=== PATIENT | female | born 1955 | race Caucasian/White ===

== ENCOUNTER → 2017-09-30 | Outpatient (CLI) | payer OTHER ==
[2017-09-30 14:47] VITALS: BP 131/94; PULSE 70; RESP 15; TEMP 98.5; BMI 38.3
--- NOTE | 2017-09-30 15:02 | P.HPBAR ---
Bariatric H&P - History & Physicial H&P Date: 09/30/17 History & Physicial: Visit/CC: lap band fill Patient initial contact: Initial weight: 104.326 kg Initial weight in pounds: 230.00 Height: 5 ft Initial BMI: 44.9 Last weight: Current weight: 88.995 kg Current weight in pounds: 196.20 Current BMI: 38.3 [place] body weight (based on NIH guidelines): 45.359 kg Excess body weight loss: 26.0% The patient is a 62 year-old F who presents for Bariatric Assessment. Patient presents today for lap band follow-up. She's not been seen since 2014. She currently states she has minimal restriction and is requesting a fill. Past Medical History Past Medical History: Osteoarthritis (OA) History of Any Multi-Drug Resistant Organisms: None Reported Past Surgical History: Bariatric Surgery, Section, Hysterectomy, Orthopedic Surgery Additional Past Surgical History / Comment(s): bilateral carpal tunnel surgery lap band surgery 2013 c section x 2 right knee arthroscopy Smoking Status: Never smoker Surgical - Exam Vital Signs Temp Pulse Resp BP 98.5 F 70 15 131/94 09/30/17 14:44 09/30/17 14:44 09/30/17 14:44 09/30/17 14:44 - General well developed, no distress - Eyes PERRL - ENT normal pinna - Neck no masses - Abdomen Abdomen: soft, non tender Bariatric Assessment & Plan Plan: Patient's lap band was adjusted. She had 1 mL added to her band. She currently has 7 mL in the band. She was ill drink water without difficulty. She'll follow-up in one month. Bariatric Checklist Checklist: Plan: Checklist: EGD: 1. Hiatal hernia: 2. H. Pylori: HgbA1c: Vitamin D: Smoking: Never smoker Primary care physician referral: gunjan nogueira Psychiatry clearance: Cardiology clearance: Sleep study: Diet journal: VTE risk score: VTE risk level: Rehab needs at discharge:
== END | disposition home or self-care (01) ==
LOC: BARWHC3 13:40
PROVIDERS: ATTEND Surgery
DX: Z48.815 Encounter for surgical aftercare following surgery on the digestive system (principal); Z98.84 Bariatric surgery status
CPT/HCPCS: 99211

== ENCOUNTER → 2017-10-04 | Outpatient (CLI) | payer OTHER ==
[2017-10-04 10:42] VITALS: BP 138/76; PULSE 79; TEMP 98; BMI 35.7
--- NOTE | 2017-10-04 12:26 | P.HPBAR ---
Bariatric H&P - History & Physicial H&P Date: 10/04/17 History & Physicial: Visit/CC: lap band follow up Patient initial contact: Initial weight: 104.326 kg Initial weight in pounds: 230.00 Height: 5 ft Initial BMI: 44.9 Last weight: Current weight: 83.098 kg Current weight in pounds: 183.20 Current BMI: 35.7 [place] body weight (based on NIH guidelines): 45.359 kg Excess body weight loss: 35.9% The patient is a 62 year-old F who presents for Bariatric Assessment. The patient presents today for lab band follow. She has completed dysphagia. She recently had a lap band fill. Past Medical History Past Medical History: No Reported History History of Any Multi-Drug Resistant Organisms: None Reported Past Surgical History: Bariatric Surgery, Section, Orthopedic Surgery Additional Past Surgical History / Comment(s): lap band 2015 bilateral carpal tunnel surgery c section x 2 right knee arthroscopy Past Anesthesia/Blood Transfusion Reactions: No Reported Reaction Past Psychological History: No Psychological Hx Reported Smoking Status: Never smoker Past Alcohol Use History: None Reported Past Drug Use History: None Reported Surgical - Exam Vital Signs Temp Pulse BP 98.0 F 79 138/76 10/04/17 10:22 10/04/17 10:22 10/04/17 10:22 - General well developed, no distress - Eyes PERRL - ENT normal pinna - Cardiovascular Rhythm: regular - Abdomen Abdomen: soft, non tender Bariatric Assessment & Plan Plan: Dysphagia secondary to occlusion of LAP-BAND. Patient will have her LAP-BAND stress. She had 1.5 mL remove her band. She currently has 5.5 mL in the band. Patient is able to water without difficulty after her adjustment. Bariatric Checklist Checklist: Plan: Checklist: EGD: 1. Hiatal hernia: 2. H. Pylori: HgbA1c: Vitamin D: Smoking: Never smoker Primary care physician referral: gunjan nogueira Psychiatry clearance: Cardiology clearance: Sleep study: Diet journal: VTE risk score: VTE risk level: Rehab needs at discharge:
== END | disposition home or self-care (01) ==
LOC: BARWHC3 09:04
PROVIDERS: ATTEND Surgery
DX: Z46.51 Encounter for fitting and adjustment of gastric lap band (principal); K95.09 Other complications of gastric band procedure; R13.10 Dysphagia, unspecified; Z98.84 Bariatric surgery status; Z98.890 Other specified postprocedural states
CPT/HCPCS: 99212

== ENCOUNTER → 2017-10-28 | Outpatient (CLI) | payer OTHER ==
--- NOTE | 2017-10-28 16:38 | P.HPBAR ---
Bariatric H&P - History & Physicial H&P Date: 10/28/17 History & Physicial: Visit/CC: Patient initial contact: Initial weight: 104.326 kg Initial weight in pounds: Height: Initial BMI: Last weight: Current weight: Current weight in pounds: Current BMI: [place] body weight (based on NIH guidelines): Excess body weight loss: The patient is a 62 year-old F who presents for Bariatric Assessment. Patient presents today for LAP-BAND adjustment. She feels very hungry. She feels no restriction. Past Medical History Past Medical History: No Reported History History of Any Multi-Drug Resistant Organisms: None Reported Past Surgical History: Bariatric Surgery, Section, Orthopedic Surgery Additional Past Surgical History / Comment(s): lap band 2015 bilateral carpal tunnel surgery c section x 2 right knee arthroscopy Past Anesthesia/Blood Transfusion Reactions: No Reported Reaction Past Psychological History: No Psychological Hx Reported Smoking Status: Never smoker Past Alcohol Use History: None Reported Past Drug Use History: None Reported Surgical - Exam - General well developed, no distress - Eyes PERRL - Abdomen Abdomen: soft, non tender Bariatric Assessment & Plan Plan: Patient LAP-BAND was adjusted. She had 0.5 mL added to her band. She currently has 6 mL in the band. She will follow-up in one month. Bariatric Checklist Checklist: Plan: Checklist: EGD: 1. Hiatal hernia: 2. H. Pylori: HgbA1c: Vitamin D: Smoking: Never smoker Primary care physician referral: gunjan nogueira Psychiatry clearance: Cardiology clearance: Sleep study: Diet journal: VTE risk score: VTE risk level: Rehab needs at discharge:
[2017-10-28 17:14] VITALS: BP 171/103; PULSE 67; RESP 15; TEMP 98.2; BMI 38.0
== END | disposition home or self-care (01) ==
LOC: BARWHC3 15:48
PROVIDERS: ATTEND Surgery
DX: Z46.51 Encounter for fitting and adjustment of gastric lap band (principal); T73.0XXA Starvation, initial encounter; Z98.84 Bariatric surgery status; Z98.890 Other specified postprocedural states
CPT/HCPCS: 99212

== ENCOUNTER → 2017-12-02 | Outpatient (CLI) | payer OTHER ==
[2017-12-02 13:08] VITALS: BP 177/84; PULSE 75; RESP 16; TEMP 99; BMI 38.2
--- NOTE | 2017-12-02 15:26 | P.HPBAR ---
Bariatric H&P - History & Physicial H&P Date: 12/02/17 History & Physicial: Visit/CC: band adj Patient initial contact: Initial weight: 104.326 kg Initial weight in pounds: 230.00 Height: 5 ft Initial BMI: 44.9 Last weight: Current weight: 88.961 kg Current weight in pounds: 196.13 Current BMI: 38.2 [place] body weight (based on NIH guidelines): 45.359 kg Excess body weight loss: 26.0% The patient is a 62 year-old F who presents for Bariatric Assessment. The patient presents today for LAP-BAND adjustment. She currently feels hungry. She is requesting a fill. Past Medical History Past Medical History: No Reported History History of Any Multi-Drug Resistant Organisms: None Reported Past Surgical History: Bariatric Surgery, Section, Orthopedic Surgery Additional Past Surgical History / Comment(s): lap band 2014 bilateral carpal tunnel surgery c section x 2 right knee arthroscopy Past Anesthesia/Blood Transfusion Reactions: No Reported Reaction Past Psychological History: No Psychological Hx Reported Smoking Status: Never smoker Past Alcohol Use History: None Reported Past Drug Use History: None Reported Surgical - Exam Vital Signs Temp Pulse Resp BP 99 F 75 16 177/84 12/02/17 13:06 12/02/17 13:06 12/02/17 13:06 12/02/17 13:06 - General well developed, no distress - Eyes PERRL - ENT normal pinna - Neck no masses - Respiratory normal expansion - Cardiovascular Rhythm: regular - Abdomen Abdomen: soft, non tender Bariatric Assessment & Plan Plan: The patient LAP-BAND was adjusted. She had 0.5 mL added to her band. She currently has 6.5 mL in the band. She will follow-up in 4 weeks. Bariatric Checklist Checklist: Plan: Checklist: EGD: 1. Hiatal hernia: 2. H. Pylori: HgbA1c: Vitamin D: Smoking: Never smoker Primary care physician referral: gunjan nogueira Psychiatry clearance: Cardiology clearance: Sleep study: Diet journal: VTE risk score: VTE risk level: Rehab needs at discharge:
== END | disposition home or self-care (01) ==
LOC: BARWHC3 12:30
PROVIDERS: ATTEND Surgery
DX: Z48.815 Encounter for surgical aftercare following surgery on the digestive system (principal); Z98.84 Bariatric surgery status; Z98.890 Other specified postprocedural states
CPT/HCPCS: 99212

== ENCOUNTER → 2018-04-21 | Outpatient (CLI) | payer OTHER ==
[2018-04-21 13:27] VITALS: BP 159/86; PULSE 62; RESP 16; TEMP 97.8; BMI 35.5
--- NOTE | 2018-04-21 16:49 | P.HPBAR ---
Bariatric H&P - History & Physicial H&P Date: 04/21/18 History & Physicial: Visit/CC: Arsh Patient initial contact: Initial weight: 104.326 kg Initial weight in pounds: 230.00 Height: 5 ft Initial BMI: 44.9 Last weight: Current weight: 82.554 kg Current weight in pounds: 182.00 Current BMI: 35.5 [place] body weight (based on NIH guidelines): 45.359 kg Excess body weight loss: 36.9% The patient is a 62 year-old F who presents for Bariatric Assessment. Patient presents today for lap band follow. She's had some minimal GERD. She does not wish to have an adjustment. She feels she she is in a good zone. Past Medical History Past Medical History: No Reported History History of Any Multi-Drug Resistant Organisms: None Reported Past Surgical History: Bariatric Surgery, Section, Orthopedic Surgery Additional Past Surgical History / Comment(s): lap band 2015 bilateral carpal tunnel surgery c section x 2 right knee arthroscopy Past Anesthesia/Blood Transfusion Reactions: No Reported Reaction Past Psychological History: No Psychological Hx Reported Smoking Status: Never smoker Past Alcohol Use History: None Reported Past Drug Use History: None Reported Surgical - Exam Vital Signs Temp Pulse Resp BP 97.8 F 62 16 159/86 04/21/18 13:25 04/21/18 13:25 04/21/18 13:25 04/21/18 13:25 - General well developed, well nourished, no distress - Abdomen Abdomen: soft, non tender Bariatric Assessment & Plan Plan: Status post lap band procedure. Patient is doing quite well. Her GERD is minimal and will be observed. She'll follow-up in 4 weeks. Bariatric Checklist Checklist: Plan: Checklist: EGD: 1. Hiatal hernia: 2. H. Pylori: HgbA1c: Vitamin D: Smoking: Never smoker Primary care physician referral: gunjan nogueira Psychiatry clearance: Cardiology clearance: Sleep study: Diet journal: VTE risk score: VTE risk level: Rehab needs at discharge:
== END ==
LOC: BARWHC3 12:54
PROVIDERS: ATTEND Surgery
DX: Z48.815 Encounter for surgical aftercare following surgery on the digestive system (principal); K21.9 Gastro-esophageal reflux disease without esophagitis; Z98.84 Bariatric surgery status
CPT/HCPCS: 99211

== ENCOUNTER → 2018-09-08 | Outpatient (CLI) | payer OTHER ==
[2018-09-08 13:48] VITALS: BP 159/111; PULSE 80; TEMP 98.3; BMI 33.0
--- NOTE | 2018-10-24 13:35 | P.HPBAR ---
Bariatric H&P - History & Physicial H&P Date: 09/08/18 History & Physicial: Visit/CC: lap band follow up Patient initial contact: Initial weight: 104.326 kg Initial weight in pounds: 230.00 Height: 5 ft Initial BMI: 44.9 Last weight: Current weight: 76.657 kg Current weight in pounds: 169.00 Current BMI: 33.0 [place] body weight (based on NIH guidelines): 45.359 kg Excess body weight loss: 46.9% The patient is a 63 year-old F who presents for Bariatric Assessment. Patient presents today for lap band follow. She's not seen several years. He is some minimal GERD. She's had a weight gain of approximately 20 pounds. Past Medical History Past Medical History: No Reported History History of Any Multi-Drug Resistant Organisms: None Reported Past Surgical History: Bariatric Surgery, Section, Orthopedic Surgery Additional Past Surgical History / Comment(s): lap band 2015 bilateral carpal tunnel surgery c section x 2 right knee arthroscopy Past Anesthesia/Blood Transfusion Reactions: No Reported Reaction Past Psychological History: No Psychological Hx Reported Smoking Status: Never smoker Past Alcohol Use History: None Reported Past Drug Use History: None Reported Surgical - Exam Vital Signs Temp Pulse BP 98.3 F 80 159/111 09/08/18 13:46 09/08/18 13:46 09/08/18 13:46 - General well developed, well nourished - Abdomen Abdomen: soft, non tender Bariatric Assessment & Plan Plan: History of LAP-BAND surgery. Patient is minimal GERD. She will follow-up in 4 weeks. She'll be observed. If she still has GERD at her next visit she'll have her LAP-BAND decreased in volume. Bariatric Checklist Checklist: Plan: Checklist: EGD: 1. Hiatal hernia: 2. H. Pylori: HgbA1c: Vitamin D: Smoking: Never smoker Primary care physician referral: gunjan nogueira Psychiatry clearance: Cardiology clearance: Sleep study: Diet journal: VTE risk score: VTE risk level: Rehab needs at discharge:
== END | disposition home or self-care (01) ==
LOC: BARWHC3 13:10
PROVIDERS: ATTEND Surgery
DX: Z48.815 Encounter for surgical aftercare following surgery on the digestive system (principal); K21.9 Gastro-esophageal reflux disease without esophagitis; Z98.84 Bariatric surgery status
CPT/HCPCS: 99211

== ENCOUNTER → 2018-09-24 | Outpatient (CLI) | payer OTHER | END | disposition home or self-care (01) | LOC: LABPAT 12:56 | PROVIDERS: ATTEND Orthopaedic Surgery | DX: Z01.812 Encounter for preprocedural laboratory examination (principal) | CPT/HCPCS: 87070 ==

== ENCOUNTER 2018-10-28 06:22 | Inpatient (IN) | payer OTHER ==
--- NOTE | 2018-10-27 09:43 | HP ---
HISTORY AND PHYSICAL CHIEF COMPLAINT: Right knee pain. HISTORY OF PRESENT ILLNESS: The patient is a 63-year-old female who presents with progressive right knee pain secondary to osteoarthrosis worsening over the past several years. She is having a difficult time with prolonged activity and sitting. She has tried previous injections and medications with only partial temporary relief. She had a previous right knee arthroscopy in 2015. PAST MEDICAL HISTORY: Significant for hyperlipidemia, arthritis, and depression. PAST SURGICAL HISTORY: Significant for gastric bypass, hysterectomy, right knee arthroscopy, right carpal tunnel release, and section. CURRENT ALLERGIES: Mobic. She denies drug allergies. FAMILY HISTORY: Significant for diabetes and Alzheimer's. SOCIAL HISTORY: Negative for current tobacco or alcohol use. 16 POINT REVIEW OF SYSTEMS: Otherwise reviewed and is noncontributory. PHYSICAL EXAMINATION: Patient is approximately 5 feet tall, 160 pounds of endomorphic habitus. HEENT exam is nonfocal. Neck is supple. She has painless passive motion of the right hip. Straight leg raise is negative. Active motion right knee -8 to 65 degrees of flexion. She is tender about the medial joint line. She has moderate effusion. Collaterals are stable, Linda is negative, Deann's is equivocal. She has genu varum alignment. Her distal neurovascular appears intact in the right lower extremity. Previous weightbearing, notch, lateral, and Merchant views of the right knee obtained in the office show severe medial and patellofemoral compartment narrowing. IMPRESSION: Right knee severe medial compartment osteoarthrosis. RECOMMENDATIONS: I talked to the patient at length regarding her condition along with treatment options. At this point, she is quite symptomatic and limited because of pain related to her osteoarthrosis despite conservative measures. After a thorough discussion, she opts to proceed with surgery. We will plan to proceed with right total knee arthroplasty. We will institute DVT prophylaxis postoperatively. MMODL / IJN: [id number] /
[~2018-10-28 06:22] MED LIST: ACETAMINOPHEN TAB 500 MG TAB PO ONE; DEXAMETHASONE SOD PHOSPHATE 10 MG/ML 1 ML VIAL IV ONE; HYDROmorphone 0.5 MG/0.5 ML SYRINGE IVP PRN; MELOXICAM 7.5 MG TAB PO ONE; MIDAZOLAM 2 MG/2 ML VIAL IV PRN; ONDANSETRON 4 MG/2 ML VIAL IVP ONE; TRANEXAMIC ACID 1,000 MG in SODIUM CHLORIDE 0.9% 100 ML IVPB ONE
[2018-10-28] MEDS ORDERED: MIDAZOLAM (PF) 2 MG/2 ML VIAL IV ONE (07:24)
[2018-10-28] MEDS ORDERED: fentaNYL (PF) 50 MCG/ML 2 ML AMP IV ONE (07:24)
[2018-10-28] MEDS ORDERED: ROPIVACAINE 246.25 MG, EPINEPHrine 0.5 MG, KETOROLAC 30 MG, cloNIDine HCL/PF 80 MCG, WA... MISCELLANE ONE ×5 (07:35)
[2018-10-28] MEDS: LACTATED RINGERS 1,000 ML IV SCH (07:36)
[2018-10-28] MEDS ORDERED: ROPIVACAINE 1,100 MG, SODIUM CHLORIDE 0.9% 500 ML 330 ML MISCELLANE PRN ×2 (07:41)
--- NOTE | 2018-10-28 07:43 | P.ANPRN ---
Procedure Note - Anesthesia - Nerve Block Performed Right Adductor Canal Infusion Time Out Performed: Yes (0723) Date of Procedure: 10/28/18 Procedure Start Time: Procedure Stop Time: Indication: Acute Post-Operative Pain, Dx/Pain Location (Right Knee Pain), Requested by physician (Regulo) Sedation Type: Sedate with meaningful contact maintained Preparation: Sterile Prep Position: Supine Catheter: Indwelling Needle Types: Pajunk Needle Gauge: 21 Technique: Ultrasound Injectate: 0.5% Ropivacaine (see comment for volume) (20ml) Blood Aspirated: No Pain Paresthesia on Injection Noted: No Resistance on Injection: Normal Events: Uneventful and Well Tolerated
[2018-10-28] MEDS ORDERED: diphenhydrAMINE 50 MG/ML 1 ML VIAL ONE (07:50)
[2018-10-28] MEDS ORDERED: SODIUM CHLORIDE 0.9% 100 ML BAG ONE (07:50)
[2018-10-28] MEDS ORDERED: TRANEXAMIC ACID 1,000 MG/10 ML VIAL ONE (07:50)
[2018-10-28] MEDS ORDERED: MIDAZOLAM 2 MG/2 ML VIAL ONE (07:50)
[2018-10-28] MEDS ORDERED: fentaNYL (PF) 50 MCG/ML 2 ML AMP ONE (07:50)
[2018-10-28] MEDS ORDERED: ceFAZolin 3,000 MG in SODIUM CHLORIDE 0.9% IRRIGATIO 3,000 ML IRRIGATION ONE (08:28)
[2018-10-28] MEDS ORDERED: HYDROmorphone 0.5 MG/0.5 ML SYRINGE IVP PRN (09:42)
[2018-10-28] MEDS ORDERED: NALOXONE 0.4 MG/ML 1 ML VIAL IV PRN (09:42)
[2018-10-28] MEDS ORDERED: MAGNESIUM HYDROXIDE 2,400 MG/10 ML CUP PO PRN (09:42)
[2018-10-28] MEDS ORDERED: HYDROcodone/APAP 5-325MG 1 EACH TAB PO PRN (09:42)
[2018-10-28] MEDS ORDERED: ACETAMINOPHEN TAB 325 MG TAB PO PRN (09:42)
[2018-10-28] MEDS ORDERED: traMADol 50 MG TAB PO PRN (09:42)
[2018-10-28] MEDS ORDERED: ONDANSETRON 4 MG/2 ML VIAL IVP PRN (09:42)
--- NOTE | 2018-10-28 10:12 | P.OP ---
Date of Procedure: 10/28/18 Preoperative Diagnosis: Right knee severe tricompartmental osteoarthrosis Postoperative Diagnosis: Same Procedure(s) Performed: Right total knee arthroplastycementedcruciate retaining Implants: [employer] 2 size 4 cemented femoral component, size 3 cemented tibial component, 9 mm articular surface, 29 mm cemented patellar component. This is a cruciate retaining implant. Anesthesia: regional, local, spinal Surgeon: Romeo Rajput Deputy Sheriff Bailiff #1: Skinny Schaeffer Estimated Blood Loss (ml): 50 Pathology: other (Bone fragments) Condition: stable Disposition: PACU Indications for Procedure: The patient is a 63-year-old female who presents with progressive right knee pain secondary osteoarthrosis despite conservative measures. A discussion of the risks and benefits of operative intervention versus continued conservative measures was made with the patient. She opted to proceed with surgery. Operative risks to include infection, neurovascular injury, development of blood clots, possible fracture, possible component loosening, possible component failure and need for subsequent procedures was discussed. Informed consent was obtained. Operative Findings: As below Description of Procedure: The patient was brought to the operating room, and after induction of spinal anesthesia the right lower extremity was prepped and draped in a normal fashion. The tourniquet was inflated to 270 mmHg. A longitudinal incision extending 3 finger breaths above the superior pole of the patella extending to the medial aspect the tibial tubercle was then made. The skin and subcutaneous tissues were divided sharply. Electrocautery was used for hemostasis. A medial parapatellar arthrotomy was then performed. The medial soft tissues to include the superficial and deep portions of the medial collateral ligament as well as the medial hamstring tendons were elevated subperiosteally. The proximal medial tibia osteophytes were carefully removed. The patella was everted. The knee was flexed. A portion of the retropatellar fat pad was excised sharply. The anterior cruciate ligament was sacrificed. A starting hole was made in the distal femur 1 cm anterior to the posterior cruciate origin. An intramedullary femoral guide was gently inserted planning on 5 valgus distal cut with 9 mm distal resection. The cutting block was pinned in place. The distal cut was then made. The posterior referencing sizing guide was utilized. 3 of external rotation was built into the system and verified off the trans- epicondylar axis and the posterior condyles. I felt size for was most appropriate. The cutting block was pinned in place. The anterior, posterior, and chamfer cuts were then made. The bone fragments were removed. The trial size 4 femoral component was then placed and was fully seated. There was good anterior to posterior and medial to lateral fit. The distal peg holes were then drilled. The trial component was then removed. Attention was then paid towards preparing the proximal tibia. An extra medullary guide was utilized in line with the tibial shaft and second metatarsal distally. A 3 posterior slope was planned. I planned on 2 mm resection from the medial compartment. The cutting block was pinned in place. The proximal tibial cut was then made. The bone was removed in one fragment. The remnants of the medial and lateral menisci were excised the capsule junction with electrocautery. The tibia sized most appropriately at size 3. The posterior osteophytes off the distal femur were carefully removed with a curved osteotome. The trial tibial and femoral components were placed along with a 9 millimeters articular surface. I was able to obtain full flexion and extension with good stability with varus and valgus stress. After several flexion and extension cycles, the tibial rotation was marked with electrocautery in line with the medial one third of the tibial tubercle. Attention was then paid towards preparing the patella. A patella reamer was utilized taking this down to 14 mm of bone stock. A good flush cut was made. The patella sized most appropriately at 29 millimeters. The peg hole s were then drilled. The trial component was placed. The knee was taken through a range of motion. I had good patellofemoral tracking with no hands technique. The trial components were then removed. The tibia was prepared in the appropriate rotation with appropriate drill and keel punch. The flexion and extension gaps were checked and felt to be symmetric. The posterior soft tissues were injected with ropivacaine. The bony surfaces were prepared with pulsatile lavage and dried. The deep tibial component was then cemented in place and was fully seated. Excess cement was removed. The femoral component was cemented in place and was fully seated. Again excess cement was removed. The trial 9 millimeters surface was then inserted in the knee was put in full extension. The patella component was cemented in place. After the cement had sufficiently hardened, the knee was again taken through a range of motion. Again there was good stability in flexion and extension with varus and valgus stress. The trial articular surface was then removed. The final articular surface was placed and was impacted. Care was taken to avoid any soft tissue interposition. Pulsatile lavage was again utilized. The tourniquet was deflated with approximately 65 minutes total tourniquet time. There was minimal drainage therefore a deep drain was not placed. The medial parapatellar arthrotomy was then closed with #2 Ethibond suture. The subcutaneous tissues were reapproximated interrupted 2-0 Vicryl sutures. The skin was reapproximated with 3-0 subarticular strata fix suture. Skin tape and adhesive was applied. A sterile dressing was applied. The patient was then awoken from sedation and transferred to recovery room in good condition. Blood loss was estimated at 50 milliliters. No complications were incurred. Sponge and needle counts were correct at the end the case. Tiago CAMACHO assisted during the major components this case to include exposure, bone resection, and implantation.
--- NOTE | 2018-10-28 10:26 | XR ---
Right knee HISTORY: Status post right knee arthroplasty 2 views of the right knee Patient is status post right knee arthroplasty. There is lucency in the soft tissues compatible with postop state. There is anatomic alignment. IMPRESSION: Orthopedic follow-up.
[2018-10-28 14:27] VITALS: BMI 31.5
[2018-10-28] MEDS: SENNOSIDES-DOCUSATE SODIUM 1 EACH TAB PO SCH (19:59)
[2018-10-28] MEDS: HYDROcodone/APAP 5-325MG 1 EACH TAB PO PRN (22:22)
--- NOTE | 2018-10-28 23:03 | CONS ---
CONSULTATION REASON FOR CONSULTATION: Advice regarding depression and other multiple medical issues requested by Dr. Rajput. HISTORY OF PRESENT ILLNESS: This 63-year-old woman with a past medical history of bariatric surgery, section, orthopedic surgery, lap band, [facility] [place] underwent right total knee arthroplasty. The patient is being closely monitored. There is no history of chest pain. No history of palpitations, headache, loss of consciousness, seizures. No history of diarrhea, fever, rigors, chills at this time. PAST MEDICAL HISTORY: Bariatric surgery, section, DJD, lap band surgery. MEDICATIONS ARE: Home medications: 1. Omeprazole 20 mg daily. 2. Lexapro 10 mg daily. 3. Vitamin D3 1000 daily. 4. Tylenol Arthritis 650 p.r.n. 5. Mobic 7.5 p.r.n. ALLERGIES: None. FAMILY HISTORY: No history of any heart disease or strokes in the family. SOCIAL HISTORY: No history of smoking. No history of alcohol intake. REVIEW OF SYSTEMS: ENT: No diminished vision. No diminished hearing. CARDIOVASCULAR: No angina or palpitations. RESPIRATORY: Respiratory is no cough or hemoptysis. GI no nausea or vomiting. no dysuria. No hematuria. CENTRAL NERVOUS SYSTEM: No numbness or weakness. ALLERGY/IMMUNOLOGY: No asthma or hayfever. MUSCULOSKELETAL as mentioned earlier. HEMATOLOGY/ONCOLOGY: No history or anemia. ENDOCRINE: No history of diabetes or hypothyroidism. CONSTITUTIONAL: As mentioned earlier. DERMATOLOGY: Negative. RHEUMATOLOGY: Negative. PSYCHIATRY as mentioned earlier. PHYSICAL EXAMINATION: Alert and oriented x3. Pulse is 54, blood pressure 125/77, respiration 18, temperature 98.1, pulse ox 94% on room air. HEENT: Conjunctivae normal. Oral mucosa moist. NECK is no jugular venous distention. No carotid bruit. No lymph node enlargement. CARDIOVASCULAR SYSTEM: S1, S2 muffled. No S3, no S4. RESPIRATORY: Breath sounds diminished in the bases. No rhonchi. No crackles. ABDOMEN: Soft, nontender. No mass palpable. LEGS: Status post right knee arthroplasty. NERVOUS SYSTEM: Higher functions as mentioned earlier. Moves all 4 limbs. No focal motor or sensory deficits. LYMPHATICS: No lymph nodes palpable in the neck, axillae or groin. SKIN: No ulcer, rash or bleeding. JOINTS: No active deforming arthropathy. LABS: Potassium 4.1. ASSESSMENT: 1. Status post right total knee arthroplasty. 2. History of bariatric surgery, lap band surgery. 3. History of carpal tunnel syndrome. 4. History of degenerative joint disease. 5. Bradycardia, possibly sinus. RECOMMENDATIONS AND DISCUSSION: In this 63-year-old woman who presented after surgery at this time I recommend to continue current medications, management and symptomatic treatment. Resume the home medications. I would recommend DVT prophylaxis. Incentive spirometry. Also recommend orthopedic surgery. Recommend close followup with the [facility] and Dr. Egan in the outpatient setting. Further recommendations to follow. Thank you Dr. Rajput for letting us participate in the care of this patient. MMODL / IJN: [id number] /
[2018-10-29] MEDS: LACTATED RINGERS 1,000 ML IV SCH (03:34)
[2018-10-29] MEDS: HYDROcodone/APAP 5-325MG 1 EACH TAB PO PRN ×4 (05:53→22:36)
--- NOTE | 2018-10-29 06:12 | P.PN ---
Progress Note - Text Progress Note Date: 10/29/18 63-year-old female status post right total knee arthroplasty postop day #1. Adductor canal catheter was placed. VAS 1-2 out of 10 in severity. Patient doing well no issues, no pruritus, no motor sensory deficits. Patient ambulating well with no issue, plan to continue with current settings and hopeful discharge home.
[2018-10-29] MEDS: CHOLECALCIFEROL 1,000 UNIT TAB PO SCH (08:14)
[2018-10-29] MEDS: RIVAROXABAN 10 MG TAB PO SCH (08:15)
[2018-10-29] MEDS: ESCITALOPRAM 10 MG TAB PO SCH (08:15)
[2018-10-29] MEDS: PANTOPRAZOLE 40 MG TABLET PO SCH (08:15)
[2018-10-29 08:33] LABS: Basophils % (A) 0 %; Eosinophils % (A) 1 %; HCT 34.8 % (34.0-46.0); HGB 11.7 gm/dL (11.4-16.0); Lymphocytes % (A) 21 %; MCH 33.7 pg (25.0-35.0); MCHC 33.6 g/dL (31.0-37.0); MCV 100.2 fL (80.0-100.0); Mean Platelet Volume 7.1; Monocytes # (A) 0.4 k/uL (0-1.0); Monocytes % (A) 8 %; Neutrophils # (A) 3.1 k/uL (1.3-7.7); Neutrophils % (A) 69 %; Platelet Count 206 k/uL (150-450); RBC 3.47 m/uL (3.80-5.40); RDW 13.6 % (11.5-15.5); WBC 4.6 k/uL (3.8-10.6)
--- NOTE | 2018-10-29 11:38 | P.PN ---
Subjective Progress Note Date: 10/29/18 Principal diagnosis: Status post right total knee arthroplasty Patient evaluated at bedside, she is resting comfortably. She did ambulate initially with therapy today, she did become very lightheaded and needed assistance returning to her room. Her blood pressure was noted to be severely declined. She is feeling better at this time. She denies any chest pain or shortness of breath. Objective - Vital Signs Vital signs: Vital Signs Temp 98.4 F 10/29/18 07:00 Pulse 58 L 10/29/18 10:18 Resp 16 10/29/18 08:00 BP 99/65 10/29/18 10:18 Pulse Ox 97 10/29/18 10:12 Intake & Output 10/28/18 10/29/18 10/29/18 18:59 06:59 18:59 Intake Total 951 150 Output Total 250 Balance 701 150 Intake: IV 851 Intake, IV Titration 150 Amount Lactated Ringers 1,000 ml 150 @ 50 mls/hr IV .Q20H TEJAL Rx#:[id number] Oral 100 Output: Urine 200 Estimated Blood Loss 50 Other: Voiding Method Toilet Toilet # Voids 1 - Exam Right lower extremity: Incision is clean, dry, and intact. The exofin fusion tape is in good condition. There is minimal soft tissue swelling and ecchymosis surrounding the medial and lateral aspects of the incision. Calf is soft, no tenderness with palpation. Plantar flexion, dorsiflexion, EHL, FHL are intact. Sensory exam to light touch throughout the extremity is intact, dorsal pedis pulses 2+. - Labs CBC & Chem 7: 10/29/18 08:03 10/28/18 07:14 Labs: Abnormal Lab Results - Last 24 Hours (Table) 10/29/18 Range/Units 08:03 RBC 3.47 L (3.80-5.40) m/uL MCV 100.2 H (80.0-100.0) fL Assessment and Plan Plan: Assessment: Postoperative day #1 status post right total knee arthroplasty Plan: Pain control, continue with oral medication GI and DVT prophylaxis, continue current medication Continue her physical therapy Encourage incentive spirometer Medical recommendation Considering discharged home of patient's nausea and blood pressure continue to improve, will reassess later this afternoon. Patient may require an additional night stay. Time with Patient: Less than 30
[2018-10-29 12:23] LABS: ALT 24 U/L (9-52); AST 20 U/L (14-36); African American GFR (CKD) >90 (>60 ml/min/1.73 sqM); Albumin 3.6 g/dL (3.5-5.0); Alkaline Phosphatase 62 U/L (38-126); Anion Gap 5 mmol/L; Blood Urea Nitrogen 17 mg/dL (7-17); Calcium 9.1 mg/dL (8.4-10.2); Carbon Dioxide 31 mmol/L (22-30); Chloride 104 mmol/L (98-107); Glucose 133 mg/dL (74-99); Potassium 3.7 mmol/L (3.5-5.1); Sodium 140 mmol/L (137-145); Total Bilirubin 0.4 mg/dL (0.2-1.3); Total Protein 5.8 g/dL (6.3-8.2)
[2018-10-29] MEDS: SODIUM CHLORIDE 0.9% 1,000 ML IV SCH (13:10)
--- NOTE | 2018-10-29 14:49 | PN ---
PROGRESS NOTE DATE OF SERVICE: 10/29/2018 This is a 63-year-old woman who was admitted after right total knee arthroplasty is complaining of some dizziness and weakness. The patient apparently had a syncopal episode also. The patient is found to be rather hypotensive with blood pressure at 79/50. The patient given some IV fluids. The patient also found to be bradycardic. The patient has no chest pain. No headache. No history of any seizures. No history of chest pain, palpitation, shortness of breath. The patient's pulse ox well maintained at 98% on room air. Patient is being closely monitored. Orthopedics is following the patient closely. PAST MEDICAL HISTORY: Reviewed. REVIEW OF SYSTEMS: CARDIOVASCULAR: As mentioned earlier. GI: No nausea. No dysuria. NERVOUS SYSTEM: No numbness, otherwise mentioned earlier. CURRENT MEDICATIONS ARE REVIEWED, INCLUDE: 1. Tylenol 650 q.4 p.r.n. 2. [place] 5 mg q.6 p.r.n. 3. Vitamin D3 one thousand units daily. 4. Lexapro 10 mg. 5. Dilaudid 0.5 mg q.3 p.r.n. 6. Lactated Ringers. 7. Milk of magnesia 2.4 mg. 8. Narcan p.r.n. 9. Zofran 4 mg q.8 p.r.n. 10.Protonix 40 mg. 11.Xarelto 10 mg daily. 12.Senokot-S 2 tablets q.h.s. 13.Ultram 50 mg q.6 p.r.n. PHYSICAL EXAM: Patient is alert, oriented x3. Pulse is 47, blood pressure 79/53, improved to 19 60, respiration 18, temperature is normal, pulse ox 97% on room air. HEENT: Normal. NECK: No jugular venous distension. CARDIOVASCULAR: S1, S2, muffled. RESPIRATORY: Breath sounds diminished at the bases, no rhonchi, no crackles. ABDOMEN: Soft, nontender. No mass palpable. LEGS: Status post surgery. NERVOUS SYSTEM: Higher functions as mentioned earlier. Moves all 4 limbs. No focal motor or sensory deficits. LYMPHATICS: No lymph note enlargement. SKIN: No ulcers, rash or bleeding. JOINTS: As mentioned earlier. LABS: WBC is 4.6, hemoglobin is 11.7, MCV 100.2, and glucose 133. ASSESSMENT: 1. Status post right total knee joint arthroplasty. 2. Syncope, possibly vasovagal, with relative hypotension. 3. History of bariatric surgery, lap band surgery. 4. History of carpal tunnel syndrome. 5. Increased random blood sugar. 6. History of degenerative joint disease. 7. Bradycardia, possibly sinus. RECOMMENDATION: In this 63-year-old woman who presented with multiple medical issues, at this time I recommend to continue current management and symptomatic treatment. I recommend to continue IV fluids 0.9 at 75 mL/hour and check orthostatic vitals. If patient continues to be hypotensive, I would recommend a bolus administration. Otherwise, set of troponins to rule out myocardial infarction. EKG, baseline workup, portable chest x- ray. Will follow the patient closely along with Orthopedic Surgery. Further recommendations to follow. MMODL / IJN: [id number] /
[2018-10-29] MEDS: SENNOSIDES-DOCUSATE SODIUM 1 EACH TAB PO SCH (20:52)
[2018-10-30] MEDS: SODIUM CHLORIDE 0.9% 1,000 ML IV SCH (03:45)
[2018-10-30] MEDS: LACTATED RINGERS 1,000 ML IV SCH (03:45)
[2018-10-30] MEDS: HYDROcodone/APAP 5-325MG 1 EACH TAB PO PRN ×2 (05:04→12:13)
[2018-10-30] MEDS: RIVAROXABAN 10 MG TAB PO SCH (08:17)
[2018-10-30] MEDS: PANTOPRAZOLE 40 MG TABLET PO SCH (08:17)
[2018-10-30] MEDS: ESCITALOPRAM 10 MG TAB PO SCH (08:17)
[2018-10-30] MEDS: CHOLECALCIFEROL 1,000 UNIT TAB PO SCH (08:17)
[2018-10-30 08:19] VITALS: BP 156/86; PULSE 61; RESP 16; TEMP 98.8
--- NOTE | 2018-10-30 13:06 | P.PN ---
Subjective Progress Note Date: 10/30/18 Principal diagnosis: Status post right total knee arthroplasty Patient evaluated at bedside, she is resting comfortably. Her BP has remained stable, no further instances of nausea. She denies any chest pain or shortness of breath. Objective - Vital Signs Vital signs: Vital Signs Temp 98.8 F 10/30/18 07:00 Pulse 61 10/30/18 07:00 Resp 16 10/30/18 08:00 BP 156/86 10/30/18 07:00 Pulse Ox 97 10/30/18 07:00 Intake & Output 10/29/18 10/30/18 10/30/18 18:59 06:59 18:59 Intake Total 120 Balance 120 Intake: Oral 120 Other: Voiding Method Toilet Toilet Toilet # Voids 3 2 - Exam Right lower extremity: Incision is clean, dry, and intact. The exofin fusion tape is in good condition. There is minimal soft tissue swelling and ecchymosis surrounding the medial and lateral aspects of the incision. Calf is soft, no tenderness with palpation. Plantar flexion, dorsiflexion, EHL, FHL are intact. Sensory exam to light touch throughout the extremity is intact, dorsal pedis pulses 2+. - Labs CBC & Chem 7: 10/29/18 08:03 10/29/18 08:03 Assessment and Plan Plan: Assessment: Postoperative day #2 status post right total knee arthroplasty Plan: Pain control, plan for discharge on [place] 5 mg/325 mg GI and DVT prophylaxis, continue current medication Continue her physical therapy Encourage incentive spirometer Medical recommendation Discharge home today Time with Patient: Less than 30
--- NOTE | 2018-10-30 13:07 | P.DS ---
Providers Date of admission: 10/28/2018 Expected date of discharge: 10/30/18 Attending physician: Romeo Rajput Consults: 10/28/18 09:42 Consult Physician Routine Consulting Provider: Mariana Johnson Consult Reason/Comments: medical management Do you want consulting provider notified?: Yes Primary care physician: [facility] Hospital Course: Date of admission: 10/28/2018 Date of discharge: 10/30/2018 Admission diagnosis: Status post right total knee arthroplasty Discharge diagnosis: Same Attending physician: Dr. Rajput Surgical procedures: Right total knee arthroplasty Brief history: Patient is a 63-year-old female with a history of progressive primary right knee osteoarthritis. At this point patient has failed conservative treatment measures and has opted to proceed with a elective right total knee arthroplasty. Hospital course: Details of patient's surgery can be found in operative report. Patient tolerated the procedure well and was subsequently transported to orthopedic floor. Patient's orthopeidc and medical care was provided daily. Patient had daily laboratory tests performed for evaluation of overall blood counts. Patient had daily physical therapy to include strengthening range of motion as well as education with walker ambulation. Patient had daily CPM usage as part of their physical therapy program. Patient was treated with Xarelto for their postoperative DVT prophylaxis during their inpatient stay. Patient was noted to have a relatively uneventful postoperative course. Patient reported satisfactory pain control with oral pain medications by postoperative day 0. Patient showed satisfactory progress with physical therapy. Patient moved steadily through the program and had no difficulty meeting the goals by postoperative day 2. Given patient's otherwise satisfactory course and having met physical therapy goals, plan is to discharge patient to home on postoperative day 2. Discharge condition/disposition: Patient will be discharged home in stable condition. Discharge medications: Instructions are given on resumption of patient's normal daily medications per primary care recommendation, in addition patient will be prescribed [place] 5 mg/325 mg, Colace 100 mg, Eliquis 2.5mg. Discharge instructions: 1. Wound care and infection precautions, keep incision dry and covered while showering, no lotions, creams, moisturizers. No soaking, tubs, pools, hottubs. Do not scrub over the incision. 2. Weight-bear as tolerated with walker / cane until follow-up. 3. Ice and elevate when necessary. Do not exceed 20 minutes per hour with ice pack. 4. Utilize compression sleeve until seen at first follow up appointment. 5. Visiting nursing care. 6. Home physical therapy including home CPM. 7. Pain meds and anticoagulants per prescription. 8. Pain medication has potential to cause constipation. Increase oral fluid and fiber intake. Contact primary care provider if you have not had a bowel movement within 48 hours after discharge 9. No anti-inflammatory medication until discussed at first post operative visit, this including Motrin, Aleve, Mobic, Diclofenac. 10. Follow up in office at 2 weeks postop with Tiago Schaeffer PA-C 11. Follow up with your primary care doctor 7-10 days after discharge. 12. Contact [facility] with any questions, . Procedures: Right total knee arthroplasty Patient Condition at Discharge: Good Plan - Discharge Summary Discharge Rx Participant: Yes New Discharge Prescriptions: New Docusate [Colace] 100 mg PO DAILY #30 capsule Apixaban [Eliquis] 2.5 mg PO BID #60 tab Hydrocodone/Acetaminophen [[place] 5-325] 1 - 2 each PO Q6HR PRN #40 tab PRN Reason: Pain No Action Cholecalciferol [Vitamin D3] 1,000 unit PO DAILY Meloxicam [Mobic] 7.5 mg PO DAILY Acetaminophen [Tylenol Arthritis] 650 mg PO BID PRN PRN Reason: Pain Omeprazole 20 mg PO DAILY Escitalopram [Lexapro] 10 mg PO DAILY Discharge Medication List Cholecalciferol [Vitamin D3] 1,000 unit PO DAILY 10/04/17 [History] Acetaminophen [Tylenol Arthritis] 650 mg PO BID PRN 10/28/17 [History] Meloxicam [Mobic] 7.5 mg PO DAILY 10/28/17 [History] Omeprazole 20 mg PO DAILY 10/23/18 [History] Escitalopram [Lexapro] 10 mg PO DAILY 10/24/18 [History] Apixaban [Eliquis] 2.5 mg PO BID #60 tab 10/30/18 [Rx] Docusate [Colace] 100 mg PO DAILY #30 capsule 10/30/18 [Rx] Hydrocodone/Acetaminophen [[place] 5-325] 1 - 2 each PO Q6HR PRN #40 tab 10/30/18 [Rx] Follow up Appointment(s)/Referral(s): Lala Gutiérrez [NON-STAFF] - As Needed Branch,Skinny M, PAC [PHYSICIAN VISUALIZATION DEVELOPER] - 2 Weeks Mirian Garber [NON-STAFF] - As Needed (Continuous Passive Motion knee machine) Activity/Diet/Wound Care/Special Instructions: Orthopedic Discharge Instructions: 1. Wound care and infection precautions, keep incision dry and covered while showering, no lotions, creams, moisturizers. No soaking, pools, hot tubs. Do not scrub over incision. 2. Weight-bear as tolerated with walker / cane until follow-up. 3. Ice and elevate when necessary. Do not exceed 20 minutes per hour with ice pack. 4. Utilize compression sleeve until seen at first follow up appointment. 5. Pain meds and anticoagulants per prescription. 6. Pain medication has potential to cause constipation. Increase oral fluid and fiber intake. Contact primary care provider if you have not had a bowel movement within 48 hours after discharge. 7. No anti-inflammatory medication until discussed at first post operative visit, this including Motrin, Aleve, Mobic, Diclofenac. 8. Follow up in office at 2 weeks postop with Tiago Schaeffer PA-C 9. Follow up with your primary care doctor 7-10 days after discharge. 10. Contact [facility] with any questions, .
--- NOTE | 2018-10-30 19:41 | PN ---
PROGRESS NOTE DATE OF SERVICE: 10/30/2018 This 63-year-old woman was admitted after right total knee arthroplasty had significant hypotension yesterday. After IV fluids, patient is feeling better today. No chest pain. No palpitations. Initial labs including troponins are negative. EXAM: Alert and oriented x3. The pulse is 61, blood pressure 156/83, respiration 16, temperature 98.3, pulse ox 97% on room air. Blood pressure changed to 142/90. HEENT: Conjunctivae normal. Oral mucosa moist. NECK is no jugular venous distention. No carotid bruit. No lymph node enlargement. CARDIOVASCULAR: S1, S2 muffled. No S3, no S4. RESPIRATORY: Breath sounds diminished in the bases. No rhonchi. No crackles. ABDOMEN is soft, nontender. LEGS: Status post surgery. NERVOUS SYSTEM: No focal deficits. LABS: Noted as mentioned earlier. Sodium 140, potassium 3.6, hemoglobin 11.7. ASSESSMENT: 1. Status post right total knee arthroplasty. 2. Syncope, possibly secondary to vasovagal syncope with relative hypotension. 3. History of bariatric surgery, lap band surgery. 4. History of carpal tunnel syndrome. 5. Increased random blood sugar. 6. History of degenerative joint disease. 7. Bradycardia, possibly sinus. 8. Hypertension. RECOMMENDATIONS AND DISCUSSION: I recommend to continue current medications, management and symptomatic treatment. I would also recommend the patient to check the blood pressure once or twice on a daily basis at home. Monitor closely and follow [facility]. Discussed with the patient who understands concerns. MMODL / IJN: [id number] /
== END 2018-10-30 14:47 | disposition home health service (06) | DRG 470 ==
LOC: OR 06:22 → 4SSUR 13:14 → OR 10-29 12:01 → 4SSUR 10-29 17:24
PROVIDERS: ADMIT Orthopaedic Surgery; ATTEND Orthopaedic Surgery
PROC: 0SRC0J9 Replacement of Right Knee Joint with Synthetic Substitute, Cemented, Open Approach (ICD-10-PCS; principal; 2018-10-28 08:00)
DX: M17.11 Unilateral primary osteoarthritis, right knee (principal); I95.9 Hypotension, unspecified; E78.5 Hyperlipidemia, unspecified; F32.9 Major depressive disorder, single episode, unspecified; I10 Essential (primary) hypertension; K21.9 Gastro-esophageal reflux disease without esophagitis; R55 Syncope and collapse; R00.1 Bradycardia, unspecified; R73.9 Hyperglycemia, unspecified; Z79.899 Other long term (current) drug therapy; Z98.84 Bariatric surgery status; Z90.710 Acquired absence of both cervix and uterus; Z83.3 Family history of diabetes mellitus; Z82.0 Family history of epilepsy and other diseases of the nervous system
CPT/HCPCS: 80053; 84132; 84484; 85025; 88300; 93005

== ENCOUNTER → 2018-12-15 | Outpatient (CLI) | payer OTHER ==
[2018-12-15 14:46] VITALS: BP 183/96; PULSE 82; RESP 16; TEMP 98.3; BMI 32.0
--- NOTE | 2018-12-15 16:17 | P.HPBAR ---
Bariatric H&P - History & Physicial H&P Date: 12/15/18 History & Physicial: Visit/CC: Band Adj Patient initial contact: Initial weight: 104.326 kg Initial weight in pounds: 230.00 Height: 5 ft Initial BMI: 44.9 Last weight: Current weight: 74.389 kg Current weight in pounds: 164.00 Current BMI: 32.0 [place] body weight (based on NIH guidelines): 45.359 kg Excess body weight loss: 50.7% The patient is a 63 year-old F who presents for Bariatric Assessment. Patient presents today for her LAP-BAND adjustment. She is requesting a fill of her band. She currently feels hungry. Past Medical History Past Medical History: No Reported History Additional Past Medical History / Comment(s): RECENT FRACTURE OF A FINGER" History of Any Multi-Drug Resistant Organisms: None Reported Past Surgical History: Bariatric Surgery, Section, Orthopedic Surgery Additional Past Surgical History / Comment(s): lap band 2015 bilateral carpal tunnel surgery c section x 2 right knee arthroscopy Past Anesthesia/Blood Transfusion Reactions: No Reported Reaction Past Psychological History: No Psychological Hx Reported Smoking Status: Never smoker Past Alcohol Use History: None Reported Past Drug Use History: None Reported - Past Family History Mother Family Medical History: No Reported History Surgical - Exam Vital Signs Temp Pulse Resp BP 98.3 F 82 16 183/96 12/15/18 14:42 12/15/18 14:42 12/15/18 14:42 12/15/18 14:42 - General well developed, well nourished, no distress - Eyes PERRL - ENT normal nares - Neck no masses - Respiratory normal expansion - Cardiovascular Rhythm: regular - Abdomen Abdomen: soft, non tender Bariatric Assessment & Plan Plan: Patient's lap band was adjusted. She has 0.2 mL added to her band. She currently 6.7 mL in the band. She'll follow-up in 4 weeks. Bariatric Checklist Checklist: Plan: Checklist: EGD: 1. Hiatal hernia: 2. H. Pylori: HgbA1c: Vitamin D: Smoking: Never smoker Primary care physician referral: gunjan nogueira Psychiatry clearance: Cardiology clearance: Sleep study: Diet journal: VTE risk score: VTE risk level: Rehab needs at discharge:
== END | disposition home or self-care (01) ==
LOC: BARWHC3 13:17
PROVIDERS: ATTEND Surgery
DX: Z46.51 Encounter for fitting and adjustment of gastric lap band (principal); Z98.84 Bariatric surgery status
CPT/HCPCS: 99212

== ENCOUNTER 2019-01-27 09:11 | Day surgery (SDC) | payer OTHER ==
[2019-01-22 15:31] VITALS: BMI 29.0
--- NOTE | 2019-01-26 09:52 | HP ---
HISTORY AND PHYSICAL CHIEF COMPLAINT: Right knee stiffness. 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 Notes persistent stiffness despite adequate rehabilitation. She has had no problems with wound healing after the surgery. She also denies fevers or chills. PAST MEDICAL HISTORY: Significant for arthritis. PAST SURGICAL HISTORY: Significant for right total knee arthroplasty, hysterectomy, gastric bypass, and right carpal tunnel surgery. CURRENT MEDICATIONS: Mobic. She denies drug allergies. FAMILY HISTORY: Significant for diabetes. SOCIAL HISTORY: Negative for current tobacco or alcohol use. REVIEW OF SYSTEMS: A 16-point review of systems otherwise reviewed and is noncontributory. PHYSICAL EXAMINATION: The patient is approximately 5 foot tall, 160 pounds of endomorphic habitus. HEENT: Exam is nonfocal. NECK: Supple. She has painless passive motion of the right hip. Active motion right knee -8 to 75 degrees of flexion. The incision is well healed. There is no warmth or erythema. She has no real joint line tenderness. Her distal neurovascular exam appears to be intact in the right lower extremity. X-rays of the right knee obtained in the office show a total knee arthroplasty with components in good position without evidence of lucencies or loosening. IMPRESSION: 1. Right knee arthrofibrosis. 2. Status post right total knee arthroplasty. RECOMMENDATIONS: I talked to the patient at length regarding her condition, in addition to treatment options. At this point, she remains quite stiff despite adequate rehabilitation. After thorough discussion, she opts to proceed with manipulation under anesthesia. We will likely perform that utilizing IV sedation as an outpatient procedure. MMODL / IJN: [id number] /
[~2019-01-27 09:11] MED LIST changes: -ACETAMINOPHEN TAB 500 MG TAB PO ONE; -HYDROmorphone 0.5 MG/0.5 ML SYRINGE IVP PRN; +LACTATED RINGERS 1,000 ML IV SCH; +LIDOCAINE 1% 20 ML VIAL (10MG/ML) FOR IV START INTRADERMA PRN; -MELOXICAM 7.5 MG TAB PO ONE; -MIDAZOLAM 2 MG/2 ML VIAL IV PRN; +Pre Op ABX Message 1 EACH MISC MISCELLANE ONE; -TRANEXAMIC ACID 1,000 MG in SODIUM CHLORIDE 0.9% 100 ML IVPB ONE; +fentaNYL (PF) 50 MCG/ML 2 ML AMP IV PRN
[2019-01-27] MEDS ORDERED: LIDOCAINE 1% INJ 10MG/ML (20 ML MDV) ONE (10:50)
[2019-01-27] MEDS ORDERED: KETOROLAC 30 MG/ML 1 ML VIAL ONE (10:50)
[2019-01-27] MEDS ORDERED: PROPOFOL 10 MG/ML 20 ML VIAL IV ONE (10:50)
[2019-01-27] MEDS: HYDROmorphone 0.5 MG/0.5 ML SYRINGE IVP PRN ×5 (11:08→11:23)
[2019-01-27 11:11] VITALS: TEMP 97.1
--- NOTE | 2019-01-27 11:12 | P.OP ---
Date of Procedure: 01/27/19 Preoperative Diagnosis: Right knee arthrofibrosis status post total knee arthroplasty Postoperative Diagnosis: Same Procedure(s) Performed: Manipulation under anesthesia right total knee arthroplasty Anesthesia: MAC Surgeon: Romeo Rajput Estimated Blood Loss (ml): 0 Pathology: none sent Condition: stable Disposition: PACU Indications for Procedure: The patient's a 63-year-old female who underwent right total knee arthroplasty recently who presented with persistent stiffness despite adequate rehabilitation. A discussion of the risks and benefits of manipulation under anesthesia was made with patient. She opted to proceed. Risks to include fracture, tendon rupture, possible recurrence of stiffness and need for subsequent procedures was discussed. Informed consent was obtained. Operative Findings: As below Description of Procedure: The patient was brought to the recovery room, and after induction of IV sedation I gently manipulated her right knee. I initially obtained 120 of flexion. Moderate adhesions were encountered. I then obtained full extension. No complications were incurred. There was no blood loss. The patient was monitored until fully awake.
[2019-01-27 11:45] VITALS: RESP 18
[2019-01-27 12:18] VITALS: BP 137/67; PULSE 60
== END 2019-01-27 12:30 | disposition home or self-care (01) ==
LOC: OR 09:11
PROVIDERS: ATTEND Orthopaedic Surgery
DX: M24.661 Ankylosis, right knee (principal); Z96.651 Presence of right artificial knee joint; M19.90 Unspecified osteoarthritis, unspecified site; Z90.710 Acquired absence of both cervix and uterus; Z98.84 Bariatric surgery status; K21.9 Gastro-esophageal reflux disease without esophagitis; Z83.3 Family history of diabetes mellitus; Z79.1 Long term (current) use of non-steroidal anti-inflammatories (NSAID); Z79.899 Other long term (current) drug therapy
CPT/HCPCS: 27570; J1100; J2405; J2001; J1885; J2704; J1170

== ENCOUNTER → 2019-02-23 | Outpatient (CLI) | payer OTHER ==
[2019-02-23 16:09] VITALS: BP 137/80; PULSE 76; TEMP 98.2; BMI 28.9
--- NOTE | 2019-02-23 17:59 | P.HPBAR ---
Bariatric H&P - History & Physicial H&P Date: 02/23/19 History & Physicial: Visit/CC: band fill Patient initial contact: Initial weight: 104.326 kg Initial weight in pounds: 230.00 Height: 5 ft Initial BMI: 44.9 Last weight: Current weight: 67.132 kg Current weight in pounds: 148.00 Current BMI: 28.9 [place] body weight (based on NIH guidelines): 45.359 kg Excess body weight loss: 63.0% The patient is a 63 year-old F who presents for Bariatric Assessment. Patient presents today for LAP-BAND adjustment. She is requesting fluid to be removed. She's had some mild dysphagia. Past Medical History Past Medical History: GERD/Reflux Additional Past Medical History / Comment(s): RECENT FRACTURE OF A FINGER" History of Any Multi-Drug Resistant Organisms: None Reported Past Surgical History: Bariatric Surgery, Section, Hysterectomy, Joint Replacement, Orthopedic Surgery Additional Past Surgical History / Comment(s): total right knee, lap band 2015 bilateral carpal tunnel surgery c section x 2 right knee arthroscopy Past Anesthesia/Blood Transfusion Reactions: No Reported Reaction Past Psychological History: No Psychological Hx Reported Smoking Status: Never smoker Past Alcohol Use History: None Reported Past Drug Use History: None Reported - Past Family History Mother Family Medical History: No Reported History Surgical - Exam Vital Signs Temp Pulse BP 98.2 F 76 137/80 02/23/19 15:30 02/23/19 15:30 02/23/19 15:30 - General well developed, well nourished, no distress - Eyes PERRL - ENT normal pinna - Neck no masses - Respiratory normal expansion - Cardiovascular Rhythm: regular - Abdomen Abdomen: soft, non tender Bariatric Assessment & Plan Plan: Patient LAP-BAND was adjusted. She had 0.2 mL removed from the band. She currently 6.5 mL in the band. She will follow-up in one month. Bariatric Checklist Checklist: Plan: Checklist: EGD: 1. Hiatal hernia: 2. H. Pylori: HgbA1c: Vitamin D: Smoking: Never smoker Primary care physician referral: gunjan nogueira Psychiatry clearance: Cardiology clearance: Sleep study: Diet journal: VTE risk score: VTE risk level: Rehab needs at discharge:
== END ==
LOC: BARWHC3 14:42
PROVIDERS: ATTEND Surgery
DX: Z46.51 Encounter for fitting and adjustment of gastric lap band (principal); R13.10 Dysphagia, unspecified; Z98.84 Bariatric surgery status
CPT/HCPCS: 99212

== ENCOUNTER → 2020-09-28 | Outpatient (CLI) | payer OTHER ==
--- NOTE | 2020-09-29 10:25 | MM ---
Reason for exam: screening (asymptomatic). History: Patient is postmenopausal. Physical Findings: A clinical breast exam by your physician is recommended on an annual basis and results should be correlated with mammographic findings. MG Screening Mammo w CAD Bilateral CC and MLO view(s) were taken. No prior studies available for comparison. There are scattered fibroglandular densities. ASSESSMENT: Negative, BI-RAD 1 RECOMMENDATION: Routine screening mammogram of both breasts in 1 year.
== END | disposition home or self-care (01) ==
LOC: RADMAMWWP 07:33
DX: Z12.31 Encounter for screening mammogram for malignant neoplasm of breast (principal); Z78.0 Asymptomatic menopausal state
CPT/HCPCS: 77067

== ENCOUNTER → 2022-01-19 | Outpatient (CLI) | payer OTHER ==
--- NOTE | 2022-01-22 10:25 | MM ---
Reason for Exam: Screening (asymptomatic). Last mammogram was performed 1 year(s) and 4 month(s) ago. Patient History: Menarche at age 14. First Full-Term at age 32. Late child-bearing (after 32). Left ovary removed at age 48. Right ovary removed at age 48. Hysterectomy at age 48. Postmenopausal. Risk Values: Suzie 5 year model risk: 2.2%. NCI Lifetime model risk: 8.9%. Prior Study Comparison: 09/28/2020 Bilateral Screening Mammogram, [facility]. Tissue Density: The breast tissue is heterogeneously dense. This may lower the sensitivity of mammography. Findings: Analyzed By CAD. There is no suspicious group of microcalcifications in either breast. Stable nodularity within the right breast. Asymmetry within the medial right breast on the CC view at posterior depth. Overall Assessment: Incomplete: need additional imaging evaluation, BI-RAD 0 Management: Diagnostic Mammogram of the right breast. A clinical breast exam by your physician is recommended on an annual basis and results should be correlated with mammographic findings. Electronically signed and approved by: Rodger Islas D.O.
== END | disposition home or self-care (01) ==
LOC: RADMAMWWP 11:22
DX: Z12.31 Encounter for screening mammogram for malignant neoplasm of breast (principal); Z78.0 Asymptomatic menopausal state
CPT/HCPCS: 77067

== ENCOUNTER → 2022-02-13 | Outpatient (CLI) | payer OTHER ==
--- NOTE | 2022-02-13 12:56 | MM ---
Reason for Exam: Additional evaluation requested from abnormal screening. Last screening mammogram was performed less than 1 month ago. Patient History: Menarche at age 14. First Full-Term at age 32. Late child-bearing (after 32). Left ovary removed at age 48. Right ovary removed at age 48. Hysterectomy at age 48. Postmenopausal. Risk Values: Suzie 5 year model risk: 2.2%. NCI Lifetime model risk: 8.9%. Prior Study Comparison: 09/28/2020 Bilateral Screening Mammogram, [facility]. 01/19/2022 Bilateral MG screening mammo w CAD, [facility]. Tissue Density: Right: The breast tissue is heterogeneously dense. This may lower the sensitivity of mammography. Findings: Analyzed By CAD. Mole is marked on the medial right breast. This area corresponds to the mammographic circumscribed density on the prior study. No suspicious underlying spiculated or lobular masses or cluster of microcalcifications or architectural distortion is evident. Overall Assessment: Benign, BI-RAD 2 Management: Screening Mammogram of both breasts in 1 year. A clinical breast exam by your physician is recommended on an annual basis and results should be correlated with mammographic findings. This exam should not preclude additional follow-up of suspicious palpable abnormalities. Results were given to the patient verbally at the time of exam. Electronically signed and approved by: Juan Pablo Floyd D.O. Radiologis
== END | disposition home or self-care (01) ==
LOC: RADMAMWWP 12:28
PROVIDERS: ATTEND Family Medicine
DX: R92.8 Other abnormal and inconclusive findings on diagnostic imaging of breast (principal); Z12.31 Encounter for screening mammogram for malignant neoplasm of breast; Z78.0 Asymptomatic menopausal state; Z90.721 Acquired absence of ovaries, unilateral
CPT/HCPCS: 77065

== ENCOUNTER → 2022-08-27 | Outpatient (CLI) | payer OTHER ==
[2022-08-27 14:27] VITALS: BP 157/93; PULSE 69; TEMP 98.2; BMI 29.0
--- NOTE | 2022-09-11 11:52 | P.HPBAR ---
Bariatric H&P - History & Physicial H&P Date: 08/27/22 History & Physicial: Visit/CC: lap band adj Patient initial contact: Initial weight: 104.326 kg Initial weight in pounds: 230.00 Height: 5 ft Initial BMI: 44.9 Last weight: Current weight: 67.495 kg Current weight in pounds: 148.80 Current BMI: 29.0 [place] body weight (based on NIH guidelines): 45.359 kg Excess body weight loss: 62.4% The patient is a 67 year-old F who presents for Bariatric Assessment. Patient resents today for LAP-BAND adjustment. She states she feels hungry and is requesting a fill Past Medical History Past Medical History: GERD/Reflux Additional Past Medical History / Comment(s): RECENT FRACTURE OF A FINGER" History of Any Multi-Drug Resistant Organisms: None Reported Past Surgical History: Bariatric Surgery, Section, Hysterectomy, Joint Replacement, Orthopedic Surgery Additional Past Surgical History / Comment(s): total right knee, lap band 2015 bilateral carpal tunnel surgery c section x 2 right knee arthroscopy Past Anesthesia/Blood Transfusion Reactions: No Reported Reaction Past Psychological History: No Psychological Hx Reported Smoking Status: Never smoker Past Alcohol Use History: None Reported Past Drug Use History: None Reported - Past Family History Mother Family Medical History: No Reported History Surgical - Exam Vital Signs Temp Pulse BP 98.2 F 69 157/93 08/27/22 14:20 08/27/22 14:20 08/27/22 14:20 - General well developed, well nourished, no distress - Eyes PERRL - ENT normal pinna - Neck no masses - Respiratory normal expansion - Cardiovascular Rhythm: regular - Abdomen Abdomen: soft, non tender Bariatric Assessment & Plan Plan: Patient's LAP-BAND was adjusted. She had 0.5 mL added to the band. She currently has 6.9 Bariatric Checklist Checklist: Plan: Checklist: EGD: 1. Hiatal hernia: 2. H. Pylori: HgbA1c: Vitamin D: Smoking: Never smoker Primary care physician referral: gunjan nogueira Psychiatry clearance: Cardiology clearance: Sleep study: Diet journal: VTE risk score: VTE risk level: Rehab needs at discharge:
== END ==
LOC: BARWHC3 14:04
PROVIDERS: ATTEND Surgery
DX: E66.01 Morbid (severe) obesity due to excess calories (principal); Z46.51 Encounter for fitting and adjustment of gastric lap band; K21.9 Gastro-esophageal reflux disease without esophagitis; Z68.29 Body mass index [BMI] 29.0-29.9, adult
CPT/HCPCS: 99212

== ENCOUNTER → 2022-10-15 | Outpatient (CLI) | payer OTHER ==
[2022-10-15 15:17] VITALS: BP 146/86; PULSE 77; RESP 16; TEMP 98; BMI 26.9
--- NOTE | 2022-11-02 09:50 | P.HPBAR ---
Bariatric H&P - History & Physicial H&P Date: 10/15/22 History & Physicial: Visit/CC: Band F/U Patient initial contact: Initial weight: 104.326 kg Initial weight in pounds: 230.00 Height: 5 ft Initial BMI: 44.9 Last weight: Current weight: 62.596 kg Current weight in pounds: 138.00 Current BMI: 26.9 [place] body weight (based on NIH guidelines): 45.359 kg Excess body weight loss: 70.7% The patient is a 67 year-old F who presents for Bariatric Assessment. Patient presents today for [place] follow-up. She is an excellent weight loss. She's had minimal GERD symptoms. She denies any dysphagia. Past Medical History Past Medical History: GERD/Reflux Additional Past Medical History / Comment(s): RECENT FRACTURE OF A FINGER" History of Any Multi-Drug Resistant Organisms: None Reported Past Surgical History: Bariatric Surgery, Section, Hysterectomy, Joint Replacement, Orthopedic Surgery Additional Past Surgical History / Comment(s): total right knee, lap band 2014 bilateral carpal tunnel surgery c section x 2 right knee arthroscopy Past Anesthesia/Blood Transfusion Reactions: No Reported Reaction Past Psychological History: No Psychological Hx Reported Smoking Status: Never smoker Past Alcohol Use History: None Reported Past Drug Use History: None Reported - Past Family History Mother Family Medical History: No Reported History Surgical - Exam Vital Signs Temp Pulse Resp BP 98 F 77 16 146/86 10/15/22 15:15 10/15/22 15:15 10/15/22 15:15 10/15/22 15:15 - General well developed, well nourished - Eyes PERRL - Abdomen Abdomen: soft, non tender Bariatric Assessment & Plan Plan: Patient's GERD is minimal old his computed observed. She'll follow-up in 4 weeks. Bariatric Checklist Checklist: Plan: Checklist: EGD: 1. Hiatal hernia: 2. H. Pylori: HgbA1c: Vitamin D: Smoking: Never smoker Primary care physician referral: gunjan nogueira Psychiatry clearance: Cardiology clearance: Sleep study: Diet journal: VTE risk score: VTE risk level: Rehab needs at discharge:
== END ==
LOC: BARWHC3 14:12
PROVIDERS: ATTEND Surgery
DX: E66.01 Morbid (severe) obesity due to excess calories (principal); K21.9 Gastro-esophageal reflux disease without esophagitis
CPT/HCPCS: 99211

== ENCOUNTER → 2023-03-21 | Outpatient (CLI) | payer OTHER ==
--- NOTE | 2023-03-21 13:17 | BD ---
EXAMINATION TYPE: Axial Bone Density DATE OF EXAM: 03/21/2023 CLINICAL HISTORY: 67 years old Female. ICD-10 CODE: Z13.820 SCREENING FOR OSTEOPOROSIS Height: 58.2 Weight: 137 FRAX RISK QUESTIONS: Secondary Osteoporosis: yes 3. Menopause before 45: yes RISK FACTORS HISTORY OF: Postmenopausal woman: yes, at about 47 yrs old Hyperparathyroidism: no Adrenal Insufficiency: no MEDICATIONS: Additional Medications: meloxicam, lexapro, reflux meds, vit d Additional History: anxiety, arthritis, reflux, EXAM MEASUREMENTS: Bone mineral densitometry was performed using the [employer] System. Bone mineral density as measured about the Lumbar spine is: ----- L1-L4(G/cm2): 1.592 T Score Values are as follows: ----- L1: 2.9 ----- L2: 3.4 ----- L3: 3.5 ----- L4: 3.7 ----- L1-L4: 3.4 Z Score Values are as follows: ----- L1: 4.5 ----- L2: 5.1 ----- L3: 5.2 ----- L4: 5.4 ----- L1-L4: 5.1 Bone mineral density is a baseline study. Bone mineral density about the R hip (g/cm2): 1.103 Bone mineral density about the L hip (g/cm2): 1.113 T Score values are as follows: -----R Neck: -0.1 -----L Neck: 0.1 -----R Total: 0.8 -----L Total: 1.0 Z Score values are as follows: -----R Neck: 1.5 -----L Neck: 1.7 -----R Total: 2.0 -----L Total: 2.3 Bone mineral density is a baseline study. FRAX%s: The graph provided illustrates a 6.7% chance for a major osteoporotic fx and a 0.2% chance fo r the hips probability for fx in 10 years time. IMPRESSION: Normal (Values between +1 and -1 indicate normal bone mass). Consider repeating this study in 5 year s or sooner if there is some new clinical indication. NOTE: T-SCORE=SD OF THE YOUNG ADULT MEAN.
== END | disposition home or self-care (01) ==
LOC: RADBDWWP 07:25
DX: Z13.820 Encounter for screening for osteoporosis (principal); Z78.0 Asymptomatic menopausal state
CPT/HCPCS: 77080

== ENCOUNTER → 2024-06-08 | Outpatient (CLI) | payer OTHER ==
[2024-06-08 09:16] VITALS: BP 156/83; PULSE 69; RESP 16; TEMP 98.2; BMI 32.0
--- NOTE | 2024-06-08 10:41 | P.HPBAR ---
Bariatric H&P - History & Physicial H&P Date: 06/08/24 History & Physicial: Visit/CC: f/u lab band Patient initial contact: Initial weight: 104.326 kg Initial weight in pounds: 230.00 Height: 5 ft Initial BMI: 44.9 Last weight: Current weight: 74.389 kg Current weight in pounds: 164.00 Current BMI: 32.0 [place] body weight (based on NIH guidelines): Excess body weight loss: The patient is a 68 year-old F who presents for Bariatric Assessment. Patient presents today for Lap-Band adjustment. She is currently hungry and requests a fill of her band. Past Medical History Past Medical History: GERD/Reflux Additional Past Medical History / Comment(s): RECENT FRACTURE OF A FINGER" History of Any Multi-Drug Resistant Organisms: None Reported Past Surgical History: Bariatric Surgery, Section, Hysterectomy, Joint Replacement, Orthopedic Surgery Additional Past Surgical History / Comment(s): total right knee, lap band 2015 bilateral carpal tunnel surgery c section x 2 right knee arthroscopy Past Anesthesia/Blood Transfusion Reactions: No Reported Reaction Past Psychological History: No Psychological Hx Reported Smoking Status: Never smoker Past Alcohol Use History: None Reported Past Drug Use History: None Reported - Past Family History Mother Family Medical History: No Reported History Surgical - Exam Vital Signs Temp Pulse Resp BP 98.2 F 69 16 156/83 06/08/24 09:06 06/08/24 09:06 06/08/24 09:06 06/08/24 09:06 - General well developed, well nourished, no distress - Eyes PERRL - ENT normal pinna - Neck no masses - Respiratory normal expansion - Cardiovascular Rhythm: regular - Abdomen Abdomen: soft, non tender Bariatric Assessment & Plan Plan: Patient Lap-Band adjusted. She had 0.2 cc after the band. She will follow-up in 4 weeks. Bariatric Checklist Checklist: Plan: Checklist: EGD: 1. Hiatal hernia: 2. H. Pylori: HgbA1c: Vitamin D: Smoking: Never smoker Primary care physician referral: Dr. Maurice [facility] Psychiatry clearance: Cardiology clearance: Sleep study: Diet journal: VTE risk score: VTE risk level: Rehab needs at discharge:
== END ==
LOC: BARWHC3 08:29
PROVIDERS: ATTEND Surgery
DX: Z46.51 Encounter for fitting and adjustment of gastric lap band (principal); Z68.32 Body mass index [BMI] 32.0-32.9, adult
CPT/HCPCS: 43999

== ENCOUNTER → 2024-08-24 | Outpatient (CLI) | payer OTHER ==
[2024-08-24 08:41] VITALS: BP 134/89; PULSE 76; RESP 16; TEMP 98.4; BMI 29.9
--- NOTE | 2024-08-24 09:10 | P.HPBAR ---
Bariatric H&P - History & Physicial H&P Date: 08/24/24 History & Physicial: Visit/CC: f/u Patient initial contact: Initial weight: 104.326 kg Initial weight in pounds: 230.00 Height: 5 ft Initial BMI: 44.9 Last weight: Current weight: 69.4 kg Current weight in pounds: 153.00 Current BMI: 29.9 [place] body weight (based on NIH guidelines): Excess body weight loss: The patient is a 69 year-old F who presents for Bariatric Assessment. Patient presents today for bariatric follow-up. Patient had previous Lap-Band. She is lost 3 pounds at her last visit. She has n very minimal gerd. Past Medical History Past Medical History: GERD/Reflux Additional Past Medical History / Comment(s): RECENT FRACTURE OF A FINGER" History of Any Multi-Drug Resistant Organisms: None Reported Past Surgical History: Bariatric Surgery, Section, Hysterectomy, Joint Replacement, Orthopedic Surgery Additional Past Surgical History / Comment(s): total right knee, lap band 2015 bilateral carpal tunnel surgery c section x 2 right knee arthroscopy Past Anesthesia/Blood Transfusion Reactions: No Reported Reaction Smoking Status: Never smoker - Past Family History Mother Family Medical History: No Reported History Surgical - Exam Vital Signs Temp Pulse Resp BP 98.4 F 76 16 134/89 08/24/24 08:38 08/24/24 08:38 08/24/24 08:38 08/24/24 08:38 - General well developed, well nourished, no distress - Eyes PERRL - ENT normal pinna - Neck no masses - Respiratory normal expansion - Cardiovascular Rhythm: regular - Abdomen Abdomen: soft, non tender Bariatric Assessment & Plan Plan: Status post sleeve gastrectomy. Patient's gerd is minimal reserve. She will follow-up in 4 weeks. Bariatric Checklist Checklist: Plan: Checklist: EGD: 1. Hiatal hernia: 2. H. Pylori: HgbA1c: Vitamin D: Smoking: Never smoker Primary care physician referral: [facility]. Maurice [facility] Psychiatry clearance: Cardiology clearance: Sleep study: Diet journal: VTE risk score: VTE risk level: Rehab needs at discharge:
== END ==
LOC: BARWHC3 08:06
PROVIDERS: ATTEND Surgery
DX: K21.9 Gastro-esophageal reflux disease without esophagitis (principal); Z98.84 Bariatric surgery status
CPT/HCPCS: 99211